=== PATIENT | female | born 1990 ===

== ENCOUNTER 2021-11-19 | Inpatient (IN) | payer OTHER ==
[2021-11-19] MEDS ORDERED: Sodium Chloride 0.9% 10 ML Syringe FLUSH PRN (01:08)
[2021-11-19] MEDS ORDERED: Misoprostol 200 MCG Tab PO PRN (01:08)
[2021-11-19] MEDS ORDERED: Methylergonovine 0.2 MG/1 ML Amp IM PRN (01:08)
[2021-11-19] MEDS ORDERED: Sodium Chloride 0.9% 20 ML SDV IV PRN (01:08)
[2021-11-19] MEDS ORDERED: Tranexamic Acid 1,000 MG in Sodium Chloride 0.9% 100 ML IV PRN (01:08)
[2021-11-19] MEDS ORDERED: Carboprost Tromethamine 250 MCG/1 ML Amp IM PRN (01:08)
[2021-11-19] MEDS ORDERED: Terbutaline 1 MG/ML SDV SUBCUT PRN (01:08)
[2021-11-19] MEDS ORDERED: Sodium Chloride 0.9% 2.5 ML Syringe FLUSH PRN (01:08)
[2021-11-19] MEDS ORDERED: Water For Irrigation,Sterile 1,000 ML Container IRR PRN (01:08)
[2021-11-19] MEDS ORDERED: Lidocaine 1% 50 ML MDV INJECT PRN (01:08)
[2021-11-19] MEDS ORDERED: Oxytocin/0.9 % Sodium Chloride 30 UNIT/500 ML BAG IV SCH ×2 (01:15)
[2021-11-19] MEDS ORDERED: Lactated Ringers 1,000 ML IV SCH (01:15)
[2021-11-19] MEDS ORDERED: Ondansetron 4 MG/2 ML SDV IVPUSH PRN (06:55)
[2021-11-19] MEDS: Butorphanol 1 MG/ML SDV IVPUSH PRN ×2 (07:10→08:46)
[2021-11-19] MEDS ORDERED: Ibuprofen 400 MG Tab PO PRN (11:03)
[2021-11-19] MEDS ORDERED: Acetaminophen 500 MG Tab PO PRN (11:03)
[2021-11-19] MEDS ORDERED: Witch Hazel Medicated Pads 40/Jar TOP PRN (11:03)
[2021-11-19] MEDS ORDERED: oxyCODONE 5 MG Tab PO PRN (11:03)
[2021-11-19] MEDS ORDERED: Docusate Sodium 100 MG Cap PO PRN (11:03)
[2021-11-19] MEDS ORDERED: Bisacodyl 10 MG Supp RECTAL PRN (11:03)
[2021-11-19] MEDS ORDERED: Benzocaine/Menthol 20%-0.5% Spray 78 GM Cannister TOP PRN (11:03)
[2021-11-19] MEDS ORDERED: Lanolin 100% Cream 7 GM Tube TOP PRN (11:03)
[2021-11-19] MEDS ORDERED: Ibuprofen 800 MG Tab PO PRN (11:03)
[2021-11-19] MEDS: Acetaminophen 500 MG Tab PO PRN (12:48)
[2021-11-20] MEDS: Acetaminophen 500 MG Tab PO PRN (12:27)
== END 2021-11-20 22:10 | disposition home or self-care (01) | DRG 807 ==
LOC: MW.OBCHECK → MW.OB 00:01 → MW.OBCHECK 00:01 → MW.OB 00:10 → MW.OBCHECK 00:10 → OBSVTOIN 11:03 → MW.OB 14:09
PROVIDERS: ADMIT Obstetrics & Gynecology; ATTEND Obstetrics & Gynecology
PROC: 10E0XZZ Delivery of Products of Conception, External Approach (ICD-10-PCS; principal; 2021-11-19)
PROC: 3E033VJ Introduction of Other Hormone into Peripheral Vein, Percutaneous Approach (ICD-10-PCS; 2021-11-19)
PROC: 0HQ9XZZ Repair Perineum Skin, External Approach (ICD-10-PCS; 2021-11-19)
DX: O36.5930 Maternal care for other known or suspected poor fetal growth, third trimester, not applicable or unspecified (principal); Z37.0 Single live birth; Z3A.38 38 weeks gestation of pregnancy; O70.0 First degree perineal laceration during delivery; Z20.822 Contact with and (suspected) exposure to COVID-19
CPT/HCPCS: 36415; 59025; 59409; 82803; 85014; 85018; 85027; 86592; 86850; 86900; 86901; A9270-GY; J0595; J2001; J2405; J2590; J7120; U0002